=== PATIENT | female | born 1985 | race Caucasian/White ===

== ENCOUNTER 2023-05-06 11:41 | Outpatient (CLI) | payer OTHER, SELFPAY ==
[2023-05-06] VITALS (7 sets, daily range): BP systolic 139–154; BP diastolic 83–88; PULSE 67–82
[2023-05-06 12:57] LABS: Appearance Urine Clear (Clear); Bacteria Urine None Seen /hpf; Basophils Percent Auto 0.4 % (0.2-1.2); Bilirubin Urine Negative (Negative); Blood Urine Negative (Negative); Color Urine Yellow (Yellow); Eosinophils Absolute Auto 0.1 K/mm3 (0-0.3); Eosinophils Percent Auto 0.6 % (0-4.4); Glucose Urine UA Negative (Negative); Hematocrit 32.1 % (37.0-47.0); Immature Granulocyte Absolute 0.06 K/mm3 (0.00-0.031); Immature Granulocyte Percent A 0.7 % (0-0.5); Immature Platelet Fraction Pct 17.7 % (0.9-11.2); Ketones Urine Negative (Negative); Leukocyte Esterase Ur Negative LEU/UL (NEGATIVE); Lymphocytes Absolute Auto 1.58 K/mm3 (0.9-3.2); Lymphocytes Percent Auto 18.8 % (18.3-44.2); Mean Corpuscular HGB Conc 31.2 g/dl (32-36); Mean Corpuscular Hemoglobin 26.6 pg (26-34); Mean Corpuscular Volume 85.4 fl (80-100); Mean Platelet Volume 13.3 fl (7.4-10.4); Monocytes Absolute Auto 0.5 K/mm3 (0.1-0.6); Monocytes Percent Auto 5.9 % (2.6-8.5); Neutrophils Absolute Auto 6.2 K/mm3 (1.3-6.7); Neutrophils Percent Auto 73.6 % (45.5-73.1); Nitrate Urine Negative (Negative); Non Pathogenic Casts 0-2; Platelet Count Result 153 k/mm3 (150-375); Protein Urine Trace mg/dL (Negative); RBC Urine 0-2 /hpf (0-2); Red Blood Count 3.76 M/mm3 (4.2-5.4); Red Cell Distribution Width 14.2 % (11.5-14.5); Specific Grav Ur 1.012 (1.001-1.035); Squamous Epithelial Cell Urine Occasional /hpf (Few); Urobilinogen Urine 0.2 mg/dL (<2.0); WBC Urine 0-5 /hpf (0-3); White Blood Count 8.4 K/mm3 (4.5-10.0)
[2023-05-06 12:58] LABS: Total Protein Urine Random 19 mg/dL; Ur Ttl Prot Creatinine Ratio 0.22 mg/mg (0-0.20)
[2023-05-06 13:04] LABS: Alanine Aminotransferase 18 U/L (6-35); Albumin Level 3.1 g/dL (3.5-5.1); Alkaline Phosphatase 141 U/L (38-126); Anion Gap 7 mmol/L (8-16); Aspartate Amino Transferase 30 U/L (14-36); Bilirubin,Total 0.3 mg/dL (0.2-1.3); Blood Urea Nitrogen 7 mg/dL (7-17); Calcium 8.5 mg/dL (8.4-10.2); Carbon Dioxide 16 mmol/L (22-30); Chloride 106 mmol/L (98-107); Estimated Glomerular Filt Rate > 60; Glucose 121 mg/dL (65-110); Potassium 3.4 mmol/L (3.4-5.0); Sodium 129 mmol/L (137-145); Uric Acid 5.1 mg/dL (2.5-7.5)
[2023-05-06 13:06] LABS: Add Urine Microscopic? YES
== END 2023-05-06 14:00 | disposition home or self-care (01) ==
LOC: ANHOBOP 11:50 → ANHOBPP 11:51
PROVIDERS: PCP Family Medicine; Visit Provider Obstetrics & Gynecology
DX: O13.9 Gestational [pregnancy-induced] hypertension without significant proteinuria, unspecified trimester (principal); Z3A.00 Weeks of gestation of pregnancy not specified
CPT/HCPCS: 36415; 59025; 80053; 81001; 82570; 84156; 84550; 85025; 85055; 87086; 99199

== ENCOUNTER 2023-05-15 05:00 | Inpatient (IN) | payer OTHER, SELFPAY ==
[2023-05-15] VITALS (127 sets, daily range): BP systolic 104–159; BP diastolic 57–105; PULSE 45–102; RESP 16–18; TEMP 36.2–36.8; O2SAT 90–100; BMI 36.3
--- NOTE | 2023-05-15 05:23 | LDADM ---
This patient, Carlene Yanez, was admitted to Labor/Delivery/Recovery 106 on 05/15/23 at 05:00. Plans for labor, pain management and were discussed with patient. Patient/family oriented to hospital policies and general routines including ID bracelet, bed and alarms, visiting hours, pain management, procedures, bathroom and other care routines, personal items, smoking policy, room service/diet and guest tray routines, security routines, and visiting hours. Patient/Family are encouraged to report perceived risks to care and to ask questions if they do not understand what they are told or what they should do. See OBIX for further documentation.
[2023-05-15 05:40] LABS: Basophils Percent Auto 0.3 % (0.2-1.2); Eosinophils Absolute Auto 0.1 K/mm3 (0-0.3); Eosinophils Percent Auto 1.3 % (0-4.4); Hematocrit 32.3 % (37.0-47.0); Immature Granulocyte Absolute 0.06 K/mm3 (0.00-0.031); Immature Granulocyte Percent A 0.6 % (0-0.5); Lymphocytes Absolute Auto 1.98 K/mm3 (0.9-3.2); Mean Corpuscular Hemoglobin 26.2 pg (26-34); Mean Corpuscular Volume 84.8 fl (80-100); Mean Platelet Volume 12.9 fl (7.4-10.4); Monocytes Absolute Auto 0.6 K/mm3 (0.1-0.6); Monocytes Percent Auto 6.3 % (2.6-8.5); Neutrophils Absolute Auto 6.6 K/mm3 (1.3-6.7); Neutrophils Percent Auto 70.5 % (45.5-73.1); Platelet Count Result 160 k/mm3 (150-375); Red Blood Count 3.81 M/mm3 (4.2-5.4); White Blood Count 9.4 K/mm3 (4.5-10.0)
[2023-05-15] MEDS: AMPICILLIN 2 GM/NS 100 ML 2 GM/100 ML BAG IVPB (05:41)
[2023-05-15] MEDS: LACTATED RINGERS 1,000 ML 75 ML IV CONT ×2 (05:42→09:44)
[2023-05-15] MEDS: OXYTOCIN 30 UNITS/NS 500 ML 30 UNITS/500 ML BAG IV CONT (05:58)
--- NOTE | 2023-05-15 06:22 | WPDANESEPP ---
Anes - Eval Pre Procedure Procedure: labor epidural Date/Time: 05/15/23 06:22 Surgeon: nila Preop Diagnosis: pain during labor Pre Op Diagnosis: IOL Patient Data Age: 37 Gender: F Height: 1.63 m Weight: 96.161 kg Last Vital Signs Temp 36.4 C L 05/15/23 05:58 Pulse 94 05/15/23 06:00 BP 151/105 H 05/15/23 06:00 Pulse Ox 100 05/15/23 06:20 O2 Del Method Room Air 05/15/23 05:23 Allergies Allergy/AdvReac Type Severity Reaction Status Date / Time No Known Allergies Allergy Verified 05/07/23 16:06 Home Medications Medication Instructions Recorded Confirmed Type prenat.vits,donn,yvc-cqoc-flrax 1 tablet 05/07/23 History Laboratory Tests 05/15/23 05/15/23 05:16 05:17 WBC 9.4 K/mm3 (4.5-10.0) RBC 3.81 L M/mm3 (4.2-5.4) Hgb 10.0 L g/dL (12.0-15.0) Hct 32.3 L % (37.0-47.0) MCV 84.8 fl (80-100) MCH 26.2 pg (26-34) MCHC 31.0 L g/dl (32-36) RDW 15.0 H % (11.5-14.5) Plt Count 160 k/mm3 (150-375) MPV 12.9 H fl (7.4-10.4) Immature Gran % (Auto) 0.6 H % (0-0.5) Neut % (Auto) 70.5 % (45.5-73.1) Lymph % (Auto) 21.0 % (18.3-44.2) [place] % (Auto) 6.3 % (2.6-8.5) Eos % (Auto) 1.3 % (0-4.4) Baso % (Auto) 0.3 % (0.2-1.2) Lymph # (Auto) 1.98 K/mm3 (0.9-3.2) [place] # (Auto) 0.6 K/mm3 (0.1-0.6) Eos # (Auto) 0.1 K/mm3 (0-0.3) Baso # (Auto) 0.0 K/mm3 (0.0-0.1) Abs Immat Gran (auto) 0.06 H K/mm3 (0.00-0.031) Absolute Neuts (auto) 6.6 K/mm3 (1.3-6.7) Absolute Nucleated RBC 0.0 K/mm3 (0.0-0.012) Nucleated RBC % 0.0 % (0.0-0.2) Sodium Pending Potassium Pending Chloride Pending Carbon Dioxide Pending Anion Gap Pending BUN Pending Creatinine Pending Estim Creat Clear Calc Pending Estimated GFR Pending Glucose Pending Uric Acid Pending Calcium Pending Total Bilirubin Pending AST Pending ALT Pending Alkaline Phosphatase Pending Total Protein Pending Albumin Pending RPR Pending HIV 1&2 Ab/P24 Ag 4thGn Pending Patient hx anesthesia problems: none Family hx anesthesia problems: none Results Review: All pre-operative results and documents have been reviewed as part of the pre-operative evaluation. [facility] Past Medical History Medical History (Updated 05/15/23 @ 06:23 by Denise Hernandes CRNA) IUP (intrauterine ), incidental Obesity Family History Family History (Updated 05/07/23 @ 16:10 by Zaida Everett RN) Other Neutropenia, congenital Social History Social History Smoking status: Never smoker Second hand tobacco smoke exposure: No Substance use: never Lack of Transportation: No Lack of Food: Never True Current Housing: I Have Housing Concerned About Future Housing: No Difficulty Paying Gas/Electric Bills: No Difficulty Paying for Meds: No Currently Unemployed: No Education: High School Diploma/GED Difficulty w/ Childcare or Family Care: No Spiritual care concerns: No Exam Day of Procedure 05/15/23 06:22
[2023-05-15 06:29] LABS: Alanine Aminotransferase 20 U/L (6-35); Albumin Level 3.3 g/dL (3.5-5.1); Alkaline Phosphatase 153 U/L (38-126); Anion Gap 8 mmol/L (8-16); Aspartate Amino Transferase 34 U/L (14-36); Bilirubin,Total 0.4 mg/dL (0.2-1.3); Blood Urea Nitrogen 6 mg/dL (7-17); Carbon Dioxide 16 mmol/L (22-30); Chloride 107 mmol/L (98-107); Estimated CRCL calculation 124 ml/min; Estimated Glomerular Filt Rate > 60; Glucose 120 mg/dL (65-110); Potassium 3.7 mmol/L (3.4-5.0); Sodium 131 mmol/L (137-145); Uric Acid 5.9 mg/dL (2.5-7.5)
[2023-05-15 06:32] LABS: HIV 1/2 Ab P24 Ag Result Negative (Negative)
[2023-05-15] MEDS: AMPICILLIN 1 GM/NS 50 ML 1 GM/50 ML BAG IVPB (09:45)
[2023-05-15 10:28] LABS: Rapid Plasma Reagin Non-Reactive (NonReactive)
--- NOTE | 2023-05-15 12:41 | WPDOBADMIT ---
Obstetrics - Admit Note Admission Note: 05/15/23 at 0845 record reviewed. Additions to the history and/or subsequent changes in the physical findings follow. 37 y/o at 37 6/7 weeks with worsening bp control. No headaches or visual field change. No epigastric or RUQ pain. Good movement. GBS pos. BP has been in the 150-160/100 range in the office, and has been creeping up. We discussed risks / benefits associated with induction of labor, and the patient prefers induction. BP 140s/90s. AVSS. AVSS NST reactive TOCO: irregular contractions ABD soft, nontender, gravid, vertex EXT nontender Cervix 2-3/50/-2. AROM with clear fluid. Vertex. A: IUP at term with favorable cervix, gestational HTN with worsening bp control. P: Plan induction of labor as above. Anticipate .
--- NOTE | 2023-05-15 13:11 | P.PCNOB_ITS ---
OB - Delivery Note Procedure Delivery date: 05/15/23 Procedure: Induction of labor with Events: Gestational Hypertension and Positive Group B Strep (GBS) Induction method: Per Pitocin Protocol Delivery augmentation: Rupture of Membranes Delivery monitor: External FHT and External Uterine Route of delivery: Episiotomy description: None Laceration Description: None Specimen: Yes (cord blood, placenta) Quantitative Blood Loss (ml): 210 Anesthesia type: Epidural Disposition: PACU Complications: None Narrative: 37 y/o at 37 6/7 weeks gestation who presented to the hospital for induction of labor. Oxytocin was administered intravenously. Amniotomy was performed with return of clear fluid. She received an epidural for pain control. Her labor progressed and her cervix dilated completely. She pushed with good effort and delivered the infant's head to the perineum. A loose nuchal cord was splinted and the body delivered. The cord was reduced, and the nose and mouth were bulb suctioned. After a delay, the cord was clamped and cut. The was handed off the field. Cord blood was collected. The placenta delivered spontaneously and was grossly normal in appearance. The usual 3 vessel cord was noted. There were no lacerations. Needle and instrument counts were correct. The patient was taken to recovery room in stable condition. The infant went to the nursery in stable condition. I was present and scrubbed for the entire delivery. [place] Baby Date of : 05/15/23 Time of : 12:58 Weeks of gestation at delivery: 37 gender: Female presentation: vertex position: Right Occiput Anterior Placenta delivery description: Spontaneous and Normal Configuration Cord Vessel Description: 3 Vessels, Nuchal Cord and Delayed Cord Clamping score one minute: 8 score five minutes: 9
[2023-05-15] MEDS: OXYTOCIN 30 UNITS/NS 500 ML 30 UNITS/500 ML BAG 125 UNITS IV CONT (13:29)
[2023-05-15] MEDS: WITCH HAZEL 40 PADS 1 PAD TOPICAL (15:18)
[2023-05-15] MEDS: IBUPROFEN 600 MG TABLET PO (15:18)
[2023-05-15] MEDS: SIMETHICONE 80 MG TAB.CHEW PO ×2 (15:18→21:49)
--- NOTE | 2023-05-15 15:35 | OBPPTRN ---
Patient transferred to post room #280 via wheelchair. Support person present. Oriented to unit, room, information board, rooming in, admission packet and security measures. Patient verbalizes understanding.
[2023-05-15] MEDS: POLYSACCHARIDE IRON COMPLEX 150 MG CAPSULE PO (17:50)
[2023-05-15] MEDS: ACETAMINOPHEN/BUTALBITAL/CAFFEINE 325-50-40 MG TABLET (FIORICET) 1 TAB PO (17:51)
[2023-05-15] MEDS: DOCUSATE SODIUM 100 MG CAPSULE PO (17:52)
[2023-05-15] MEDS: LACTATED RINGERS 1,000 ML 999 ML IV CONT (18:10)
[2023-05-15] MEDS: HYDROcodone/acetaminophen (*CRX) 10-325 MG TABLET 1 TAB PO (21:49)
[2023-05-16] MEDS: IBUPROFEN 600 MG TABLET PO ×4 (00:27→22:30)
[2023-05-16] MEDS: SIMETHICONE 80 MG TAB.CHEW PO ×2 (00:27→04:10)
[2023-05-16] MEDS: HYDROcodone/acetaminophen (*CRX) 10-325 MG TABLET 1 TAB PO (04:10)
[2023-05-16 04:30] VITALS: BP 134/87; PULSE 71; RESP 16; TEMP 36.9; O2SAT 100
[2023-05-16 04:53] LABS: Hematocrit 27.8 % (37.0-47.0); Hemoglobin 8.7 g/dL (12.0-15.0)
--- NOTE | 2023-05-16 07:16 | P.PNAN_ITS ---
Anes - Eval Pre Procedure Procedure: epidural blood patch Date/Time: 05/16/23 07:16 Pre Op Diagnosis: IOL Patient Data Age: 37 Gender: F Height: 1.63 m Weight: 96.2 kg Last Vital Signs Temp 36.9 C 05/16/23 04:30 Pulse 71 05/16/23 04:30 Resp 16 05/16/23 04:30 BP 134/87 05/16/23 04:30 Pulse Ox 100 05/16/23 04:30 O2 Del Method Room Air 05/16/23 04:30 Allergies Allergy/AdvReac Type Severity Reaction Status Date / Time No Known Allergies Allergy Verified 05/07/23 16:06 Home Medications Medication Instructions Recorded Confirmed Type prenat.vits,donn,gby-liwa-lhgct 1 tablet 05/07/23 History Laboratory Tests 05/15/23 05/16/23 05:17 03:58 Hgb 8.7 L g/dL (12.0-15.0) Hct 27.8 L % (37.0-47.0) RPR Non-reactive (NonReactive) Blood Type B Positive Antibody Screen Negative Patient hx anesthesia problems: none Family hx anesthesia problems: none Results Review: All pre-operative results and documents have been reviewed as part of the pre- operative evaluation. PMF[facility] Past Medical History Medical History (Updated 05/15/23 @ 06:23 by Denise Hernandes CRNA) IUP (intrauterine ), incidental Obesity Family History Family History (Updated 05/07/23 @ 16:10 by Zaida Everett RN) Other Neutropenia, congenital Social History Social History Smoking status: Never smoker Second hand tobacco smoke exposure: No Substance use: never Lack of Transportation: No Lack of Food: Never True Current Housing: I Have Housing Concerned About Future Housing: No Difficulty Paying Gas/Electric Bills: No Difficulty Paying for Meds: No Currently Unemployed: No Education: High School Diploma/GED Difficulty w/ Childcare or Family Care: No Spiritual care concerns: No Exam Day of Procedure 05/16/23 07:16
--- NOTE | 2023-05-16 07:40 | PC.NURSE ---
Anesthesia here to do blood patch.
--- NOTE | 2023-05-16 08:50 | PM.OBPNVD ---
OB - PN: Subj Subjective Date/time seen: 05/16/23 08:50 Narrative: Had a blood patch, feeling much better today. Pain OK. OB - PN: Obj Data Labs 05/16/23 03:58 05/15/23 05:16 Labs: Laboratory Results - last 24 hr 05/15/23 05/16/23 05:17 03:58 Hgb 8.7 L Hct 27.8 L RPR Non-reactive OB - PN A/P Plan Comments: A: PPD#1, doing well. P: Routine care. Exam Psych: Other: AVSS ABD soft, nontender, fundus firm EXT nontender
[2023-05-16 09:05] VITALS: BP 121/79; PULSE 69; RESP 20; TEMP 36.4
[2023-05-16] MEDS: DOCUSATE SODIUM 100 MG CAPSULE PO ×2 (09:51→16:01)
[2023-05-16] MEDS: POLYSACCHARIDE IRON COMPLEX 150 MG CAPSULE PO ×2 (09:51→16:01)
[2023-05-16] MEDS: MULTIVIT/MIN/PREN/FOL AC/IRON TABLET 1 TAB PO (09:51)
--- NOTE | 2023-05-16 11:11 | WPDANESEBPP ---
Anes - Epidural Blood Patch PN Date/Time: 05/16/23 11:11 Consent: I have discussed with the patient/family/POA, the rationale of a lumbar epidural autologous blood patch for the treatment of post-dural puncture headache (spinal headache), including associated potential risks, benefits, complications and side effects. I have also discussed more conservative treatment options such as intravenous hydration, caffeine and non-prescription analgesics. The patient/family/POA, understand(s) and wish(es) to proceed with epidural autologous blood patch as treatment for the patient's post-dural puncture headache. Time-Out: A pre-procedural Time-Out was completed immediately before starting the procedure and confirmed: Patient Identification, Site, Procedure, Patient Position and the Availability of Requisite Equipment. Epidural Insertion Note Patient position: left lateral decubitus Skin prep: chlorhexidine Needle: 18 gauge Tuohy-Schliff Technique: loss of resistance Skin anesthesia: lidocaine 1% Observations: other (815am L2-3, JO ANN, cath threaded, no CSF, removed tip intact, 17cc sterile blood injected, tolerated well, supine for one hour, excellent relief of symptoms upon F/U at 915)
[2023-05-16 12:30] VITALS: BP 119/67; PULSE 70; RESP 20
[2023-05-16 16:00] VITALS: BP 121/65; TEMP 36.6
[2023-05-16 19:14] VITALS: BP 143/81; PULSE 76; RESP 18; TEMP 36.7
[2023-05-16] MEDS: ACETAMINOPHEN 325 MG TABLET 650 MG PO (19:14)
[2023-05-16 23:00] VITALS: BP 141/79; PULSE 79
[2023-05-17 04:50] VITALS: BP 124/64; PULSE 72
[2023-05-17] MEDS: IBUPROFEN 600 MG TABLET PO ×2 (04:50→11:28)
--- NOTE | 2023-05-17 07:22 | PM.OBPNVD ---
OB - PN: Subj Subjective Date/time seen: 05/17/23 07:22 Narrative: Pain OK. Would like to go home. OB - PN: Obj Data Labs 05/16/23 03:58 05/15/23 05:16 OB - PN A/P Plan Comments: A: PPD#2, doing well. P: Home to f/u 6 weeks. Exam Psych: Other: AVSS ABD soft, nontender, fundus firm EXT nontender
--- NOTE | 2023-05-17 07:22 | PM.DS ---
DS: Admitting Diagnosis Discharge Date 05/17/23 Admitting Diagnosis IUP at 37 weeks Gestational hypertension DS: Discharge Diagnosis Discharge Diagnosis (1) Gestational hypertension: Code(s): O13.9 - Gestational [-induced] hypertension without significant proteinuria, unspecified trimester Status: Acute (2) (normal spontaneous vaginal delivery): Code(s): O80 - Encounter for full-term uncomplicated delivery Status: Acute DS: Summary Time Spent with Patient Time attestation: Total time spent providing and/or coordinating discharge services: DS: Data Data Completed and Pending Pending studies at discharge: Pending at discharge 05/15/23 13:03 Surgical [PTH] Routine Discharge Plan Discharge Attending physician on discharge: Jason Stevens Discharging Clinician: Jason Stevens Patient Disposition: Home, Self-Care Activity: pelvic rest Diet: regular Discharge Instructions: Call or return if temperature above 100.4? F, increased abdominal pain, increased vaginal bleeding or any new problems. Stand Alone Forms: General Discharge Information Follow-up/Referrals: Jason Stevens MD [Physician] - 6 Weeks Discharge Medications: New ibuprofen 600 mg tablet 600 mg PO Q6H PRN (Reason: cramps) Qty: 30 0RF ferrous sulfate 325 mg (65 mg iron) tablet 325 mg PO DAILY Qty: 30 0RF Continued #2 Tablet 1 tablet Date of admission: 05/15/23 05:00 Primary Care Provider: Shreyas,Silviano Murray Admitting Provider: Jason Stevens Attending physician on admission: Jason Stevens Condition: Stable
--- NOTE | 2023-05-17 07:24 | PM.OBDSVD ---
DS: Admitting Diagnosis Discharge Date 05/17/23 Admitting Diagnosis IUP at 37 6/7 weeks Gestational hypertension DS: Discharge Diagnosis Discharge Diagnosis (1) (normal spontaneous vaginal delivery): Code(s): O80 - Encounter for full-term uncomplicated delivery Status: Acute (2) Gestational hypertension: Code(s): O13.9 - Gestational [-induced] hypertension without significant proteinuria, unspecified trimester Status: Acute OB - DS: Summary OB Procedures : PIH Mgmt OB Procedures Intrapartum: Spontaneous Vag Delivery OB Procedures: : None Time Spent with Patient Time attestation: Total time spent providing and/or coordinating discharge services: DS: Data Data Completed and Pending Pending studies at discharge: Pending at discharge 05/15/23 13:03 Surgical [PTH] Routine Discharge Plan Discharge Attending physician on discharge: Jason Stevens Discharging Clinician: Jason Stevens Patient Disposition: Home, Self-Care Activity: pelvic rest Diet: regular Discharge Instructions: Call or return if temperature above 100.4? F, increased abdominal pain, increased vaginal bleeding or any new problems. Stand Alone Forms: General Discharge Information Follow-up/Referrals: Jason Stevens MD [Physician] - 6 Weeks Discharge Medications: New ibuprofen 600 mg tablet 600 mg PO Q6H PRN (Reason: cramps) Qty: 30 0RF ferrous sulfate 325 mg (65 mg iron) tablet 325 mg PO DAILY Qty: 30 0RF Continued #2 Tablet 1 tablet Date of admission: 05/15/23 05:00 Primary Care Provider: Kim,Silviano Murray Admitting Provider: Jason Stevens Attending physician on admission: Jason Stevens Condition: Stable
[2023-05-17] MEDS: ACETAMINOPHEN 325 MG TABLET 650 MG PO (09:51)
[2023-05-17 09:52] VITALS: BP 147/83; PULSE 81; RESP 18; TEMP 36.9; O2SAT 99
[2023-05-17] MEDS: DOCUSATE SODIUM 100 MG CAPSULE PO (09:52)
[2023-05-17] MEDS: MULTIVIT/MIN/PREN/FOL AC/IRON TABLET 1 TAB PO (09:52)
[2023-05-17] MEDS: POLYSACCHARIDE IRON COMPLEX 150 MG CAPSULE PO (09:52)
[2023-05-18 10:12] VITALS: BP 168/76; PULSE 62; RESP 18; TEMP 36.7; O2SAT 100
== END 2023-05-17 12:25 | disposition home or self-care (01) | DRG 807 ==
LOC: ANHLDR 13:14 → ANHOB2 15:37
PROVIDERS: Admitting Provider Obstetrics & Gynecology; PCP Family Medicine; Visit Provider Obstetrics & Gynecology
DX: O99.824 Streptococcus B carrier state complicating childbirth (principal); Z37.0 Single live birth; O13.4 Gestational [pregnancy-induced] hypertension without significant proteinuria, complicating childbirth; O69.81X0 Labor and delivery complicated by cord around neck, without compression, not applicable or unspecified; O62.3 Precipitate labor; Z3A.37 37 weeks gestation of pregnancy
CPT/HCPCS: 36415; 80053; 84550; 85014; 85018; 85025; 86592; 86703; 86850; 86900; 86901; 88307; A9270; G0432; J0290; J2590; J2795; J7120

== ENCOUNTER 2023-05-18 10:31 | Outpatient (CLI) | payer OTHER, SELFPAY ==
--- NOTE | 2023-05-18 11:03 | WPDANESEPP ---
Anes - Eval Pre Procedure Procedure: epidural blood patch Date/Time: 05/18/23 11:03 Surgeon: nila Preop Diagnosis: pdph Pre Op Diagnosis: PP/PIH Evaluation Patient Data Age: 37 Gender: F Height: Weight: Allergies Allergy/AdvReac Type Severity Reaction Status Date / Time No Known Allergies Allergy Verified 05/07/23 16:06 Home Medications Medication Instructions Recorded Confirmed Type prenat.vits,donn,hyt-mpoz-zltku 1 tablet 05/07/23 History ibuprofen 600 mg tablet 600 mg PO Q6H PRN cramps #30 tabs 05/15/23 Rx ferrous sulfate 325 mg (65 mg 325 mg PO DAILY #30 tabs 05/16/23 Rx iron) tablet Laboratory Tests 05/18/23 10:57 WBC Pending RBC Pending Hgb Pending Hct Pending MCV Pending MCH Pending MCHC Pending RDW Pending Plt Count Pending MPV Pending Immature Gran % (Auto) Pending Neut % (Auto) Pending Lymph % (Auto) Pending [place] % (Auto) Pending Eos % (Auto) Pending Baso % (Auto) Pending Lymph # (Auto) Pending [place] # (Auto) Pending Eos # (Auto) Pending Baso # (Auto) Pending Abs Immat Gran (auto) Pending Absolute Neuts (auto) Pending Absolute Nucleated RBC Pending Nucleated RBC % Pending Sodium Pending Potassium Pending Chloride Pending Carbon Dioxide Pending Anion Gap Pending BUN Pending Creatinine Pending Estim Creat Clear Calc Pending Estimated GFR Pending Glucose Pending Uric Acid Pending Calcium Pending Total Bilirubin Pending AST Pending ALT Pending Alkaline Phosphatase Pending Total Protein Pending Albumin Pending Patient hx anesthesia problems: none Family hx anesthesia problems: none Results Review: All pre-operative results and documents have been reviewed as part of the pre-operative evaluation. [facility] Past Medical History Medical History (Updated 05/17/23 @ 07:23 by Jason Stevens MD) IUP (intrauterine ), incidental Obesity Family History Family History (Updated 05/07/23 @ 16:10 by Zaida Everett RN) Other Neutropenia, congenital Social History Social History Smoking status: Never smoker Second hand tobacco smoke exposure: No Substance use: never Lack of Transportation: No Lack of Food: Never True Current Housing: I Have Housing Concerned About Future Housing: No Difficulty Paying Gas/Electric Bills: No Difficulty Paying for Meds: No Currently Unemployed: No Education: High School Diploma/GED Difficulty w/ Childcare or Family Care: No Spiritual care concerns: No Exam Day of Procedure 05/18/23 11:03
--- NOTE | 2023-05-18 11:03 | WPDANESEBPP ---
Anes - Epidural Blood Patch PN Date/Time: 05/18/23 11:03 Consent: I have discussed with the patient/family/POA, the rationale of a lumbar epidural autologous blood patch for the treatment of post-dural puncture headache (spinal headache), including associated potential risks, benefits, complications and side effects. I have also discussed more conservative treatment options such as intravenous hydration, caffeine and non-prescription analgesics. The patient/family/POA, understand(s) and wish(es) to proceed with epidural autologous blood patch as treatment for the patient's post-dural puncture headache. Time-Out: A pre-procedural Time-Out was completed immediately before starting the procedure and confirmed: Patient Identification, Site, Procedure, Patient Position and the Availability of Requisite Equipment. Clinical Indications: pdph Epidural Insertion Note Patient position: sitting Skin prep: chlorhexidine Needle: 18 gauge Tuohy-Schliff Technique: loss of resistance Skin anesthesia: lidocaine 1% Observations: tolerated well Complications: none
[2023-05-18 11:05] LABS: Basophils Absolute Auto 0.1 K/mm3 (0.0-0.1); Basophils Percent Auto 0.6 % (0.2-1.2); Eosinophils Absolute Auto 0.2 K/mm3 (0-0.3); Eosinophils Percent Auto 1.7 % (0-4.4); Hematocrit 33.4 % (37.0-47.0); Hemoglobin 10.3 g/dL (12.0-15.0); Immature Granulocyte Absolute 0.06 K/mm3 (0.00-0.031); Immature Granulocyte Percent A 0.6 % (0-0.5); Lymphocytes Absolute Auto 1.95 K/mm3 (0.9-3.2); Lymphocytes Percent Auto 19.1 % (18.3-44.2); Mean Corpuscular HGB Conc 30.8 g/dl (32-36); Mean Corpuscular Hemoglobin 26.3 pg (26-34); Mean Corpuscular Volume 85.4 fl (80-100); Mean Platelet Volume 12.5 fl (7.4-10.4); Monocytes Absolute Auto 0.5 K/mm3 (0.1-0.6); Monocytes Percent Auto 4.7 % (2.6-8.5); Neutrophils Absolute Auto 7.5 K/mm3 (1.3-6.7); Neutrophils Percent Auto 73.3 % (45.5-73.1); Platelet Count Result 235 k/mm3 (150-375); Red Blood Count 3.91 M/mm3 (4.2-5.4); Red Cell Distribution Width 15.8 % (11.5-14.5); White Blood Count 10.2 K/mm3 (4.5-10.0)
[2023-05-18 11:18] LABS: Alanine Aminotransferase 52 U/L (6-35); Albumin Level 3.8 g/dL (3.5-5.1); Alkaline Phosphatase 135 U/L (38-126); Anion Gap 5 mmol/L (8-16); Aspartate Amino Transferase 87 U/L (14-36); Bilirubin,Total 0.5 mg/dL (0.2-1.3); Blood Urea Nitrogen 9 mg/dL (7-17); Calcium 8.8 mg/dL (8.4-10.2); Carbon Dioxide 22 mmol/L (22-30); Chloride 108 mmol/L (98-107); Estimated Glomerular Filt Rate > 60; Glucose 77 mg/dL (65-110); Potassium 3.9 mmol/L (3.4-5.0); Sodium 135 mmol/L (137-145); Uric Acid 7.2 mg/dL (2.5-7.5)
--- NOTE | 2023-05-18 12:14 | PC.NURSE ---
Dr Stevens notified of lab results, blood patch that was done per anesthesia and current BP's. No new orders at this time.
--- NOTE | 2023-05-18 13:04 | WPDOBADMIT ---
Obstetrics - Admit Note Admission Note: 37 y/o female PPD#3 s/p . She had gestational hypertension prompting induction of labor. course complicated by spinal headache, treated with blood patch. She got home yesterday and the headache recurred. Swelling in legs is better. No visual field change. No epigastric or RUQ pain. Headache resolves completely when she lies flat. BP 130-160/80-90 ABD soft, nontender, fundus firm EXT nontender, with improving edema. Transaminases mildly elevated, other labs all ok A: Headache - likely spinal headache, less likely atypical preeclampsia P: If headache resolves after repeat blood patch today, she may go home to recheck bp and labs in the office in 1-2 days. Reviewed instructions and precautions in detail.
--- NOTE | 2023-05-18 13:28 | PC.NURSE ---
Patient assisted to a sitting position and then to standing. Patient reports a return in her headache. Patient states that it improves with lying down. Rating resting headache is 1-2.
--- NOTE | 2023-05-18 13:30 | PC.NURSE ---
Patient attempted to stand, once standing patient states that her headache did come back a little. Rating pain a 4-5 when standing. Rating pain 1-2 when lying down.
--- NOTE | 2023-05-18 14:30 | PC.NURSE ---
Patient able to stand with ease. States DUDLEY is very mild headache when standing and much better when lying down. Patient states that she is comfortable going home. Discussed symptoms to return for and precautions given.
--- NOTE | 2023-05-18 14:45 | PC.NURSE ---
See OBIX for BP's
== END 2023-05-18 14:45 | disposition home or self-care (01) ==
PROVIDERS: PCP Family Medicine; Visit Provider Obstetrics & Gynecology
DX: O13.9 Gestational [pregnancy-induced] hypertension without significant proteinuria, unspecified trimester (principal); Z3A.00 Weeks of gestation of pregnancy not specified
CPT/HCPCS: 36415; 62273; 80053; 84550; 85025